=== PATIENT | female | born 2000 | race Hispanic/Latino ===

== ENCOUNTER 2022-02-08 12:01 | Outpatient (CLI) | payer BC, MEDICAID | END 2022-02-08 12:02 | disposition home or self-care (01) | LOC: CSHLAB 12:01 | PROVIDERS: ATTEND Student in an Organized Health Care Education/Training Program | DX: Z20.822 Contact with and (suspected) exposure to COVID-19 (principal) | CPT/HCPCS: 87811 ==

== ENCOUNTER 2022-02-13 19:00 | Inpatient (IN) | payer BC, OTHER ==
[2022-02-14 05:36] VITALS: BMI 33.7
[2022-02-14] MEDS ORDERED: Lidocaine 1% (PF) 30 ML VIAL SC PRN (05:38)
[2022-02-14] MEDS ORDERED: Methylergonovine 0.2 MG/ML VIAL IM PRN (05:38)
[2022-02-14] MEDS ORDERED: Penicillin G Potassium 5 MILL.UNITS in Sodium Chloride 0.9% 100 ML IVPB SCH (05:38)
[2022-02-14] MEDS ORDERED: Ondansetron PF 4 MG/2 ML Vial IVP PRN ×3 (05:38→22:17)
[2022-02-14] MEDS ORDERED: Acetaminophen 500 MG TAB PO PRN (05:38)
[2022-02-14] MEDS ORDERED: Ibuprofen 800 MG TAB PO PRN (05:38)
[2022-02-14] MEDS ORDERED: NS w/ Oxytocin 30 units 500 ML IV SCH ×2 (05:38)
[2022-02-14] MEDS ORDERED: Lactated Ringer's 1,000 ML IV SCH (05:38)
[2022-02-14] MEDS ORDERED: Promethazine HCl 25 MG/ML VIAL IM PRN ×3 (05:38→22:17)
[2022-02-14] MEDS ORDERED: Carboprost 250 MCG/ML AMP IM PRN (05:38)
[2022-02-14] MEDS ORDERED: Fentanyl 100 MCG/2 ML VIAL SLOW IVP PRN (05:38)
[2022-02-14] MEDS ORDERED: HYDROcodone/Acetaminophen 5/325 mg Tablet PO PRN ×3 (05:38→22:17)
[2022-02-14] MEDS ORDERED: Diphenoxylate HCl/Atropine Tablet PO PRN (05:38)
[2022-02-14] MEDS ORDERED: hydrALAZINE 20 MG/ML VIAL SLOW IVP PRN ×2 (05:38→22:17)
[2022-02-14] MEDS ORDERED: Misoprostol 200 MCG TAB PR PRN (05:38)
[2022-02-14] MEDS: Misoprostol 100 MCG TAB VAG SCH ×2 (05:46→23:09)
[2022-02-14 05:51] LABS: Hemoglobin 11.7 g/dL (12.0-15.5); Mean Corpuscular HGB CONC 33.7 g/dL (32.0-36.0); Mean Corpuscular Hemoglobin 27.7 pg (27.0-33.0); Mean Platelet Volume 10.9 fl (7.4-10.4); Platelet Count 259 10x3/uL (150-450); RBC Distribution Width 15.3 % (11.5-14.5); Red Blood Cell (RBC) Count 4.23 10x6/uL (3.90-5.03)
[2022-02-14] MEDS ORDERED: Bupivacaine/Epinephrine 0.25% 30 ML VIAL ONE (06:00)
[2022-02-14 07:48] LABS: Syphilis Antibody Nonreactive (Nonreactive); Syphilis Antibody Index 0.04 S/CO (<1.00 Non-Reactive)
[2022-02-14 07:51] LABS: HBSAg Index 0.19 S/CO (0-0.99); Hep B Surf Ag Non-Reactive S/CO (NonReactive)
[2022-02-14] MEDS: Penicillin G 2.5 MILL.units 2.5 MILL.UNITS in Premix Bag 1 BAG IVPB SCH ×4 (09:04→23:09)
[2022-02-14] MEDS: Butorphanol Tartrate 1 MG/ML VIAL SLOW IVP PRN ×2 (09:54→13:59)
[2022-02-14] MEDS ORDERED: Fentanyl 2 mcg/Bup 0.1% Cadd 100 ML ONE (16:38)
[2022-02-14] MEDS ORDERED: ePHEDrine Sulfate 50 MG/10 ML VIAL SLOW IVP PRN (17:40)
[2022-02-14] MEDS ORDERED: Acetaminophen 325 MG TAB PO PRN (17:40)
[2022-02-14] MEDS ORDERED: Moisturizing Cream (Eucerin) 113 GM JAR TOP PRN (17:40)
[2022-02-14] MEDS ORDERED: diphenhydrAMINE 50 MG/ML VIAL IVP PRN (17:40)
[2022-02-14] MEDS ORDERED: Naloxone HCl 0.4 mg/ml Vial IVP PRN ×2 (17:40)
[2022-02-14] MEDS ORDERED: Communication Order-Pharmacy FS SCH (17:45)
[2022-02-14] MEDS ORDERED: Lactated Ringer's 500 ML IV PRN (17:45)
[2022-02-14] MEDS ORDERED: Fentanyl 2 mcg/Bupivacaine 0.1% Cassette 100 ML EPIDURAL SCH (17:45)
[2022-02-14] MEDS ORDERED: Milk Of Magnesia 30 ML UDCUP PO PRN (22:17)
[2022-02-14] MEDS ORDERED: Benzocaine-Menthol 82.5 ML CAN TOP PRN (22:17)
[2022-02-14] MEDS ORDERED: Preparation H Ointment 28 GM TUBE PR PRN (22:17)
[2022-02-14] MEDS ORDERED: diphenhydrAMINE 25 MG CAP PO PRN (22:17)
[2022-02-14] MEDS ORDERED: Lanolin Ointment 7 GM TUBE TOP PRN (22:17)
[2022-02-14] MEDS ORDERED: Bisacodyl 10 MG SUPP PR PRN (22:17)
[2022-02-14] MEDS ORDERED: Boostrix 0.5 ML (Tdap) VIAL (>/=7 yrs of age) IM ONE (22:17)
[2022-02-14] MEDS ORDERED: Docusate 100 MG CAP PO SCH (22:30)
[2022-02-14] MEDS ORDERED: Ibuprofen 800 MG TAB PO SCH (22:30)
[2022-02-15] MEDS: Ibuprofen 800 MG TAB PO SCH ×3 (05:44→21:33)
[2022-02-15] MEDS: Ferrous Sulfate 325 MG TAB PO SCH ×2 (08:55→17:57)
[2022-02-15] MEDS: Prenatal Vitamin 1 TAB PO SCH (08:59)
[2022-02-15] MEDS: Docusate 100 MG CAP PO SCH ×2 (09:00→21:33)
[2022-02-16] MEDS: Ibuprofen 800 MG TAB PO SCH (06:06)
[2022-02-16 08:09] VITALS: BP 113/67; TEMP 98.1
[2022-02-16] MEDS: Ferrous Sulfate 325 MG TAB PO SCH (10:57)
== END 2022-02-16 11:59 | disposition home or self-care (01) | DRG 807 ==
LOC: CSHLD 02-14 04:28 → CSHPED 02-14 22:07
PROVIDERS: ADMIT Student in an Organized Health Care Education/Training Program; ATTEND Student in an Organized Health Care Education/Training Program
PROC: 10E0XZZ Delivery of Products of Conception, External Approach (ICD-10-PCS; principal; 2022-02-14)
PROC: 3E0P7VZ Introduction of Hormone into Female Reproductive, Via Natural or Artificial Opening (ICD-10-PCS; 2022-02-14)
PROC: 0U7C7ZZ Dilation of Cervix, Via Natural or Artificial Opening (ICD-10-PCS; 2022-02-14)
PROC: 10907ZC Drainage of Amniotic Fluid, Therapeutic from Products of Conception, Via Natural or Artificial Opening (ICD-10-PCS; 2022-02-14)
PROC: 10H07YZ Insertion of Other Device into Products of Conception, Via Natural or Artificial Opening (ICD-10-PCS; 2022-02-14)
PROC: 0HQ9XZZ Repair Perineum Skin, External Approach (ICD-10-PCS; 2022-02-14)
DX: O99.824 Streptococcus B carrier state complicating childbirth (principal); Z37.0 Single live birth; O48.0 Post-term pregnancy; Z3A.40 40 weeks gestation of pregnancy; O76 Abnormality in fetal heart rate and rhythm complicating labor and delivery; O70.0 First degree perineal laceration during delivery
CPT/HCPCS: 36415; 51702; 85027; 86780; 86850; 86900; 86901; 87340; J0595; J2405; J2540; J2590; J3490

== ENCOUNTER 2023-06-09 15:02 | Emergency (ER) | payer BC, OTHER ==
[2023-06-09 15:53] LABS: Bilirubin Neg (Negative); Blood, Urine 250 (Negative); Clarity Slightly Cloudy (Clear); Glucose, Urine (Dipstick) Normal (Negative); Ketone, Urine Negative (Negative); Leukocyte Negative (Negative); Nitrite Negative (Negative); Protein, Urine (Dipstick) 30 mg/dl (Neg-Trace); Urobilinogen Normal mg/dL (Less than 2)
[2023-06-09] MEDS ORDERED: Cyclobenzaprine 10 MG TAB ONE (15:54)
[2023-06-09] MEDS ORDERED: Ibuprofen 200 MG TAB ONE (15:55)
[2023-06-09 16:01] LABS: CAUTI Indications for Culture Dysuria,urgency,freq; RBC/HPF 21-50 HPF (0-3); WBC/HPF 0-3 HPF (0-3)
[2023-06-09 16:02] LABS: Bacteria/HPF 2+ HPF (None Seen); Mucous/LPF 2+ LPF (<2+)
[2023-06-09 16:04] LABS: Urine Culture Reflex No No
[2023-06-09 17:23] LABS: #Eosinphils 0.2 10x3/uL (0.0-0.5); #Monocytes 0.6 10x3/uL (0.0-1.1); #Neutrophils 3.1 10x3/uL (1.5-8.4); %Basophils 0.7 % (0.0-2.0); %Eosinophils 2.6 % (0.0-6.0); %Lymphocytes 32.1 % (18.0-47.0); %Neutrophils 53.3 % (40.0-75.0); Hematocrit 43.7 % (34.9-44.5); Hemoglobin 14.8 g/dL (12.0-15.5); Mean Corpuscular HGB CONC 33.9 g/dL (32.0-36.0); Mean Corpuscular Hemoglobin 29.8 pg (27.0-33.0); Mean Corpuscular Volume 87.9 fl (81.6-98.3); Mean Platelet Volume 9.9 fl (7.4-10.4); Platelet Count 306 10x3/uL (150-450); RBC Distribution Width 12.6 % (11.5-14.5); Red Blood Cell (RBC) Count 4.97 10x6/uL (3.90-5.03); White Blood Cell (WBC) Count 5.8 10x3/uL (3.5-10.5)
[2023-06-09 17:28] LABS: BHCG - Serum Negative (NEGATIVE); Pregs Control Background? CLEAR/WHITE (CLR/WHITE); Pregs Control Bar Appear? YES (CONTROL BAR)
[2023-06-09 17:35] LABS: ALT (SGPT) 17 U/L (8-55); AST (SGOT) 19 U/L (5-34); Albumin 4.2 g/dL (3.5-5.0); Alkaline Phosphatase 81 U/L (40-110); Anion Gap 12 mmol/L (10-20); BUN (Urea Nitrogen) 9 mg/dL (7.0-18.7); Bilirubin, Total 0.5 mg/dL (0.2-1.2); Calc. Creatinine Clearance 0 mL/min (70-130); Calcium 8.6 mg/dL (7.8-10.44); Carbon Dioxide 22 mmol/L (22-29); Chloride 108 mmol/L (98-107); Estimated GFR 126; Globulin 3.1 g/dL (2.4-3.5); Glucose 92 mg/dL (70-105); Lipase 23 U/L (8-78); Potassium 3.7 mmol/L (3.5-5.1); Protein, Total 7.3 g/dL (6.0-8.3); Sodium 138 mmol/L (136-145)
== END 2023-06-09 17:59 | disposition home or self-care (01) ==
LOC: CSHERS 15:02
DX: M54.6 Pain in thoracic spine (principal); R31.0 Gross hematuria
CPT/HCPCS: 72072; 80053; 81001; 83690; 84703; 85025